=== PATIENT | male | born 1945 | race Caucasian/White ===

== ENCOUNTER 2017-04-02 16:48 | Outpatient (CLI) | payer MEDICARE, OTHER ==
--- NOTE | 2017-04-03 15:39 | Ultrasound Report ---
EXAM: SCROTAL ULTRASOUND EXAM DATE: 04/02/2017 06:01 PM. CLINICAL HISTORY: R TESTICULAR MASS. COMPARISON: None. TECHNIQUE: Real-time scanning was performed with static images obtained. Both color-flow and Doppler spectral analysis were utilized. FINDINGS: Right: Testis: 3.7 x 1.8 x 3.0 cm. Normal size and echotexture. No mass, calcification, or abnormal blood fl ow. There is a small tunica albuginea cyst measuring 3 x 2 x 2 mm. Epididymis: There is a large cyst or spermatocele of the epididymal head measuring 4.7 x 2.4 x 4.1 cm . No solid mass or abnormal blood flow. Hydrocele: None. Varicocele: None. Left: Testis: 3.7 x 1.8 x 2.5 cm. Normal size and echotexture. No mass, calcification, or abnormal blood fl ow. Epididymis: 2.4 x 0.7 x 1.0 cm. Normal size and echotexture. No mass or abnormal blood flow. There i s a small cyst or spermatocele of the epididymal head measuring 3 x 3 x 3 mm. Hydrocele: Small. Varicocele: None. IMPRESSION: 1. 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 2. No testicular mass. 3. Small left-sided hydrocele. [facility] Referring Provider Line: [phone] SITE ID: [id number]
--- NOTE | 2017-04-03 15:39 | Ultrasound Preliminary Report ---
Exam: US TESTICLE IMPRESSION: 1. 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 2. No testicular mass. 3. Small left-sided hydrocele. [facility] SITE ID: [id number]
== END 2017-04-02 16:49 | disposition home or self-care (01) ==
LOC: DI 16:48
PROVIDERS: ATTEND Internal Medicine
DX: N50.89 Other specified disorders of the male genital organs (principal); N43.3 Hydrocele, unspecified
CPT/HCPCS: 76870